=== PATIENT | female | born 1965 | race Caucasian/White ===

== ENCOUNTER 2016-11-23 13:49 | Emergency (ER) | payer MEDICARE ==
[2015-11-20 14:08] VITALS: BMI 29.1
[~2016-11-23 13:49] MED LIST: BACLOFEN20 M1 PO; CATAPRES0.2 MG PO; HYDROCODONE-APA1 TAB PO; METOPROLOL TART50 MG PO; NIFEDIPINE ER60 MG PO; PLAVIX75 MG PO; PROTONIX40 MG PO; ZESTRIL40 MG PO
== END 2016-11-23 16:05 | disposition home or self-care (01) ==
LOC: D.ER 13:49
DX: S90.31XA Contusion of right foot, initial encounter (principal); W05.0XXA Fall from non-moving wheelchair, initial encounter; Y93.89 Activity, other specified; Y92.019 Unspecified place in single-family (private) house as the place of occurrence of the external cause; S93.401A Sprain of unspecified ligament of right ankle, initial encounter; S93.601A Unspecified sprain of right foot, initial encounter; I50.9 Heart failure, unspecified; Z86.73 Personal history of transient ischemic attack (TIA), and cerebral infarction without residual deficits; I10 Essential (primary) hypertension

== ENCOUNTER 2017-05-04 14:56 | Emergency (ER) | payer MEDICARE ==
[2015-11-20 14:08] VITALS: BMI 29.1
== END 2017-05-04 18:11 | disposition home or self-care (01) ==
LOC: D.ER 14:56
DX: M25.571 Pain in right ankle and joints of right foot (principal); I10 Essential (primary) hypertension; I50.9 Heart failure, unspecified